=== PATIENT | male | born 1980 | race Caucasian/White ===

== ENCOUNTER 2016-08-06 14:51 | Emergency (ER) | payer OTHER ==
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
[~2016-08-06 14:51] MED LIST: BACLOFEN10 MG PO; BACTRIM DS TABL1 TA1 PO; CELEBREX PO; CIPRO XR 500 M500 MG; FLEXERIL10 MG PO; IBUPROFEN PO; NAPROSYN-EC500 M1 PO; NO MEDICATIONS; NORCO1 TAB 10/3 PO; PHENERGAN12.5 MG PO; PREDNISONE PO; SILVADENE TOP; TESSALON200 MG PO; ULTRAM PO; VICODIN 5/1 TAB 5/50 PO; VOLTAREN50 MG PO; VOLTAREN75 MG PO; ZANTAC PO
== END 2016-08-06 16:16 | disposition home or self-care (01) ==
LOC: CED 14:51
DX: S29.012A Strain of muscle and tendon of back wall of thorax, initial encounter (principal); S46.911A Strain of unspecified muscle, fascia and tendon at shoulder and upper arm level, right arm, initial encounter; F17.210 Nicotine dependence, cigarettes, uncomplicated; Z88.0 Allergy status to penicillin; V43.92XA Unspecified car occupant injured in collision with other type car in traffic accident, initial encounter
CPT/HCPCS: 71020; 72040; 72072; 73030; 99284

== ENCOUNTER 2016-12-03 12:41 | Emergency (ER) | payer OTHER ==
--- NOTE | ~2016-12-03 | CR172 ---
[facility]. [facility] A Service of [facility] & [facility] RADIOLOGY TEXT RESULTS PATIENT: MARY OBRIEN LOCATION: [facility] : 76 UNIT #: [id number] AGE: [address]: JT FISH SEX: M ORDER DR: [id number] [place] [id number] E MR#: [id number] Acc #: [id number] NAME: MARY OBRIEN. : 1980 SEX: M STUDY DATE/TIME: 12/03/2016 13:06 UNIT: [facility] ROOM: STUDY DESCRIPTION: CR Knee 3 Views Lt Attending Physician: Franklin Fish Ordering Physician: Franklin Fish Primary Care Physician: Michelle Ace M.D. MEDICAL IMAGING REPORT This report is preliminary unless electronic signature is present. EXAM Three views left knee. INDICATIONS Anterior distal knee pain today after a fall. FINDINGS No acute fracture or subluxation of the left knee is identified. There is no suprapatellar effusion. There is no significant degenerative change. There is a possible soft tissue defect overlying the anterior aspect of the proximal tibia. Correlation with physical exam findings is recommended. IMPRESSION No acute fracture or subluxation identified. There is some dressing material seen overlying the anterior aspect of the proximal tibia. Correlation with any underlying skin injury is suggested. Dictated by... Lindsey Barrera M.D. THIS IS AN ELECTRONICALLY VERIFIED REPORT Lindsey Barrera M.D. at 12/05/2016 5:01 PM AFF/hung TD: 12/03/2016 16:10 JOB #: [id number] MEDICAL IMAGING REPORT Page 1 of 1
[2016-12-03] MEDS ORDERED: NO MEDICATIONS (12:44)
== END 2016-12-03 14:30 | disposition home or self-care (01) ==
LOC: SED 12:41
DX: S81.812A Laceration without foreign body, left lower leg, initial encounter (principal); S70.02XA Contusion of left hip, initial encounter; Z88.0 Allergy status to penicillin; F17.210 Nicotine dependence, cigarettes, uncomplicated; I25.2 Old myocardial infarction; W23.0XXA Caught, crushed, jammed, or pinched between moving objects, initial encounter; Y92.69 Other specified industrial and construction area as the place of occurrence of the external cause; Y99.0 Civilian activity done for income or pay
CPT/HCPCS: 12001; 73562; 99283

== ENCOUNTER 2016-12-04 04:33 | Emergency (ER) | payer OTHER ==
[~2016-12-04] VITALS: Ht 167.6 cm; Wt 61.2 kg
--- NOTE | ~2016-12-04 | CR150 ---
[facility]. [facility] A Service of [facility] & [facility] RADIOLOGY TEXT RESULTS PATIENT: MARY OBRIEN LOCATION: [facility] : 76 UNIT #: [id number] AGE: [address]: Akil Edwards DO SEX: M ORDER DR: [id number] [place] [id number] E MR#: [id number] Acc #: [id number] NAME: MARY OBRIEN. : 1980 SEX: M STUDY DATE/TIME: 12/04/2016 5:04 UNIT: [facility] ROOM: STUDY DESCRIPTION: CR Hip Min 2 Views Lt Attending Physician: Akil Edwards Ordering Physician: Akil Edwards Primary Care Physician: Michelle Ace M.D. MEDICAL IMAGING REPORT This report is preliminary unless electronic signature is present. EXAM Left hip, 12/04/2016. HISTORY 36-year-old male in the ED complaining of left rib and left hip pain after a fall from a ladder yesterday. TECHNIQUE Two-view left hip series. FINDINGS The examination is negative. No fracture, dislocation or other acute osseous abnormality is demonstrated. IMPRESSION Negative left hip series. Dictated by... Otf Troy M.D. THIS IS AN ELECTRONICALLY VERIFIED REPORT Otf Troy M.D. at 12/04/2016 10:02 PM CON/campbell TD: 12/04/2016 05:46 JOB #: [id number] MEDICAL IMAGING REPORT Page 1 of 1
--- NOTE | ~2016-12-04 | CR210 ---
[facility]. [facility] A Service of [place] & [facility] RADIOLOGY TEXT RESULTS PATIENT: MARY OBRIEN LOCATION: [facility] : 76 UNIT #: [id number] AGE: [address]: Akil Edwards DO SEX: M ORDER DR: [id number] [place] [id number] E MR#: [id number] Acc #: [id number] NAME: MARY OBRIEN. : 1980 SEX: M STUDY DATE/TIME: 12/04/2016 5:04 UNIT: [facility] ROOM: STUDY DESCRIPTION: CR Ribs Uni 2 View W PA Ch Lt Attending Physician: Akil Edwards Ordering Physician: Akil Edwards Primary Care Physician: Michelle Ace M.D. MEDICAL IMAGING REPORT This report is preliminary unless electronic signature is present. EXAM Chest and left rib series 12/04/2016 HISTORY 36-year-old male in the ED complaining of left rib pain and left hip pain after a fall from ladder yesterday. TECHNIQUE PA upright chest x-ray with two-view left rib series. FINDINGS No acute rib fracture is identified. The lungs are expanded and clear with no visible pneumothorax, pulmonary infiltrate or pleural effusion. Cardiomediastinal silhouette is normal. IMPRESSION Negative chest and left rib series. Dictated by... Otf Troy M.D. THIS IS AN ELECTRONICALLY VERIFIED REPORT Otf Troy M.D. at 12/04/2016 10:02 PM CON/campbell TD: 12/04/2016 05:40 JOB #: [id number] MEDICAL IMAGING REPORT Page 1 of 1
== END 2016-12-04 05:34 | disposition home or self-care (01) ==
LOC: SED 04:33
DX: S20.212A Contusion of left front wall of thorax, initial encounter (principal); S70.02XA Contusion of left hip, initial encounter; F17.210 Nicotine dependence, cigarettes, uncomplicated; Z88.0 Allergy status to penicillin; W18.39XA Other fall on same level, initial encounter; Y92.89 Other specified places as the place of occurrence of the external cause
CPT/HCPCS: 71100; 73502; 99283